=== PATIENT | female | born 2000 | race Caucasian/White ===

== ENCOUNTER → 2022-10-05 | Outpatient (CLI) | payer OTHER | END | disposition home or self-care (01) | LOC: LAB 16:47 → LAB SHORT 16:47 | PROVIDERS: Advanced Practice Midwife | DX: Z01.419 Encounter for gynecological examination (general) (routine) without abnormal findings (principal) | CPT/HCPCS: G0145 ==

== ENCOUNTER → 2022-11-16 | Outpatient (CLI) | payer BC, OTHER ==
[~2022-11-16] MED LIST: ESCI20 PO
== END ==
LOC: LAB SHORT 18:30 → LAB 18:30
DX: R35.0 Frequency of micturition (principal)
CPT/HCPCS: 87086

== ENCOUNTER → 2022-12-10 | Outpatient (CLI) | payer BC, OTHER | END | disposition home or self-care (01) | LOC: LAB SHORT 14:10 → LAB 14:10 | DX: N39.0 Urinary tract infection, site not specified (principal) | CPT/HCPCS: 84702 ==

== ENCOUNTER 2023-11-10 19:29 | Emergency (ER) | payer OTHER ==
[~2023-11-10] VITALS: Ht 162.6 cm; Wt 116.1 kg
[2023-11-10 19:33] VITALS: BP 152/96
[2023-11-10 20:00] LABS: Hematocrit 42.1 % (33.0-51.0); Hemoglobin 13.5 g/dL (11.5-16.0); Mean Corpuscular HGB 27.6 pg (26.0-34.0); Mean Corpuscular HGB Conc 32.1 g/dL (31.5-36.5); Mean Corpuscular Volume 86 fL (80-100); Mean Platelet Volume 10.8 fL (9.1-12.4); Platelet Count 296 K/mm3 (150-400); RDW Coefficient Variation 13.2 % (11.7-14.2); RDW Standard Deviation 41.1 fL (35.1-46.3)
[2023-11-10 20:19] LABS: Source, Urine Clean Catch
[2023-11-10 20:23] LABS: Bilirubin, Urine Neg (Neg); Blood, Urine Neg (Neg); Glucose Qualitative, Urine Neg (Neg); Ketones, Urine Neg (Neg); Leukocyte Esterase, Urine Neg (Neg); Nitrite, Urine Neg (Neg); Protein, Urine Neg (Neg); Urobilinogen, Urine NORM (Normal); pH, Urine 6.5 (5.0-8.0)
[2023-11-10 20:29] LABS: Appearance, Urine Clear (Clear); Color, Urine Yellow (P-Yellow)
[2023-11-10 20:36] LABS: Bun/Creatinine Ratio 13.1 (12.0-20.0); Calcium, Blood 9.1 mg/dL (8.5-10.1); Creatinine, Blood 0.92 mg/dL (0.40-1.00); Potassium, Blood 3.6 mmol/L (3.5-5.5)
[2023-11-10 20:52] LABS: BAND PERCENT MAN 2 % (0-8); BASOPHILS PERCENT MAN 1 % (0-2); EOSINOPHILS PERCENT MAN 0 % (0-6); LYMPHOCYTES % ATYPICAL MANUAL 8 % (0-0); LYMPHOCYTES ABSOLUTE MAN 4.75 K/mm3 (0.84-5.20); LYMPHOCYTES PERCENT MAN 36 % (21-46); MONOCYTES ABSOLUTE MAN 0.97 K/mm3 (0.16-1.47); MONOCYTES PERCENT MAN 9 % (4-13); NEUTROPHILS ABSOLUTE MAN 4.96 K/mm3 (1.96-9.15); SEG NEUTROPHILS PERCENT MAN 44 % (41-73); TOTAL CELLS COUNTED 100
== END 2023-11-10 21:01 | disposition home or self-care (01) ==
LOC: ER 19:29
PROVIDERS: Physician Assistant
DX: O99.891 Other specified diseases and conditions complicating pregnancy (principal); R10.12 Left upper quadrant pain; R10.32 Left lower quadrant pain; Z79.899 Other long term (current) drug therapy; Z3A.00 Weeks of gestation of pregnancy not specified
CPT/HCPCS: 76801; 76817; 80048; 81003; 84702; 85025

== ENCOUNTER 2023-12-28 19:15 | Emergency (ER) | payer OTHER ==
[~2023-12-28] VITALS: Ht 160 cm; Wt 108.9 kg
[2023-12-28 19:43] VITALS: BP 127/89
[2023-12-28 20:07] LABS: Source, Urine Clean Catch
[2023-12-28 20:10] LABS: Appearance, Urine Hazy (Clear); Blood, Urine 3+ (Neg); Color, Urine Yellow (P-Yellow); Glucose Qualitative, Urine Neg (Neg); Ketones, Urine 4+ (Neg); Leukocyte Esterase, Urine 3+ (Neg); Nitrite, Urine Neg (Neg); Protein, Urine 2+ (Neg); Specific Gravity, Urine 1.025 (1.003-1.022); Urobilinogen, Urine 1+ (Normal)
[2023-12-28 20:15] LABS: Bilirubin, Urine 1+ (Neg); White Blood Cells, Urine TNTC /hpf (0-5)
[2023-12-28 20:16] LABS: Bacteria Mod /hpf; Squamous Epithelial Cells Many /hpf (Few)
[2023-12-28] MEDS ORDERED: CefTRIAXone Sodium 1,000 MG in NS 100 ML IV ONE (21:25)
[2023-12-28] MEDS ORDERED: NS 1,000 ML IV SCH (21:25)
[2023-12-28 21:50] LABS: BASOPHILS ABSOLUTE AUTO 0.02 K/mm3 (0.00-0.23); BASOPHILS PERCENT AUTO 0 % (0-2); EOSINOPHILS ABSOLUTE AUTO 0.02 K/mm3 (0.00-0.68); EOSINOPHILS PERCENT AUTO 0 % (0-6); Hematocrit 43.6 % (33.0-51.0); Hemoglobin 14.2 g/dL (11.5-16.0); IMMATURE GRAN ABSOLUTE AUTO 0.04 K/mm3 (0.00-0.10); IMMATURE GRAN PERCENT AUTO 0 % (0-1); LYMPHOCYTES PERCENT AUTO 16 % (21-46); MONOCYTES ABSOLUTE AUTO 0.52 K/mm3 (0.16-1.47); MONOCYTES PERCENT AUTO 5 % (4-13); Mean Corpuscular HGB Conc 32.6 g/dL (31.5-36.5); Mean Corpuscular Volume 86 fL (80-100); Mean Platelet Volume 11.4 fL (9.1-12.4); NEUTROPHILS ABSOLUTE AUTO 8.32 K/mm3 (1.96-9.15); NEUTROPHILS PERCENT AUTO 78 % (41-73); Platelet Count 226 K/mm3 (150-400); RDW Coefficient Variation 13.7 % (11.7-14.2); RDW Standard Deviation 42.9 fL (35.1-46.3); Red Blood Cell Count 5.08 M/mm3 (3.80-5.20); White Blood Cell Count 10.62 K/mm3 (4.00-11.30)
[2023-12-28 22:10] LABS: Albumin, Blood 3.7 g/dL (3.4-5.0); Albumin/Globulin Ratio 0.9 (0.8-1.8); Bilirubin, Total 0.6 mg/dL (0.1-1.0); Bun/Creatinine Ratio 7.2 (12.0-20.0); Calcium, Blood 9.2 mg/dL (8.5-10.1); Creatinine, Blood 0.7 mg/dL (0.40-1.00); Globulin, Blood 4.1 g/dL (2.2-4.0); Potassium, Blood 3.6 mmol/L (3.5-5.5); Total Protein, Blood 7.8 g/dL (6.4-8.2)
[2023-12-28] MEDS ORDERED: PROM25 PO (22:19)
[2023-12-28] MEDS ORDERED: CEPH500 PO (22:19)
[2023-12-28] MEDS ORDERED: ERYT.5TO LEFTEYE (22:31)
== END 2023-12-28 22:42 | disposition home or self-care (01) ==
LOC: ER 19:15
PROVIDERS: Nurse Practitioner
DX: O99.891 Other specified diseases and conditions complicating pregnancy (principal); H10.9 Unspecified conjunctivitis; O23.41 Unspecified infection of urinary tract in pregnancy, first trimester; R82.4 Acetonuria; Z3A.12 12 weeks gestation of pregnancy
CPT/HCPCS: 80053; 81001; 85025; 87086; 96365; 99283-25; J0696; J7030

== ENCOUNTER → 2024-06-08 | Outpatient (CLI) | payer OTHER ==
[~2024-06-08] MED LIST changes: +CEPH500 PO; +ERYT.5TO LEFTEYE; +PROM25 PO
== END | disposition home or self-care (01) ==
LOC: LAB 12:03 → LAB SHORT 12:03
DX: O09.91 Supervision of high risk pregnancy, unspecified, first trimester (principal)
CPT/HCPCS: 87081; 87150

== ENCOUNTER 2024-06-22 22:03 | Inpatient (IN) | payer OTHER ==
[~2024-06-22] VITALS: Ht 165.1 cm; Wt 99.5 kg
[2024-06-22] MEDS ORDERED: Misoprostol 200 MCG Tab PR PRN (22:30)
[2024-06-22] MEDS ORDERED: Ondansetron HCl 2 MG / ML 2ML Vial IV PRN (22:30)
[2024-06-22] MEDS ORDERED: Misoprostol 200 MCG Tab BC PRN (22:30)
[2024-06-22] MEDS ORDERED: Lactated Ringer's 1,000 ML IV SCH (22:30)
[2024-06-22] MEDS ORDERED: OXYTOCIN/RINGER'S LACTATE 500 ML IV PRN (22:30)
[2024-06-22] MEDS ORDERED: Tranexamic Acid 100 ML IV SCH (22:30)
[2024-06-22] MEDS ORDERED: CeFAZolin Sodium 2,000 MG in NS 100 ML IV SCH (22:30)
[2024-06-22] MEDS ORDERED: Acetaminophen 500 MG Tab PO PRN (22:30)
[2024-06-22] MEDS ORDERED: Methylergonovine Maleate 0.2MG / ML 1ML Amp IM PRN (22:30)
[2024-06-22] MEDS ORDERED: Carboprost Tromethamine 250 MCG/ML 1ML Amp IM PRN (22:30)
[2024-06-22] MEDS ORDERED: Azithromycin 500 MG in NS 250 ML IV SCH ×2 (22:30→22:40)
[2024-06-22] MEDS ORDERED: Lactated Ringer's 1,000 ML IV ONE (22:30)
[2024-06-22] MEDS ORDERED: Oxytocin 10 Unit / ML Vial IM PRN (22:30)
[2024-06-22 22:33] LABS: BASOPHILS ABSOLUTE AUTO 0.02 K/mm3 (0.00-0.23); BASOPHILS PERCENT AUTO 0 % (0-2); EOSINOPHILS ABSOLUTE AUTO 0.01 K/mm3 (0.00-0.68); EOSINOPHILS PERCENT AUTO 0 % (0-6); Hematocrit 38.9 % (33.0-51.0); IMMATURE GRAN ABSOLUTE AUTO 0.04 K/mm3 (0.00-0.10); IMMATURE GRAN PERCENT AUTO 0 % (0-1); LYMPHOCYTES ABSOLUTE AUTO 1.34 K/mm3 (0.84-5.20); LYMPHOCYTES PERCENT AUTO 9 % (21-46); MONOCYTES ABSOLUTE AUTO 0.42 K/mm3 (0.16-1.47); MONOCYTES PERCENT AUTO 3 % (4-13); Mean Corpuscular HGB 28.8 pg (26.0-34.0); Mean Corpuscular HGB Conc 33.4 g/dL (31.5-36.5); Mean Corpuscular Volume 86 fL (80-100); NEUTROPHILS ABSOLUTE AUTO 14.02 K/mm3 (1.96-9.15); NEUTROPHILS PERCENT AUTO 88 % (41-73); Platelet Count 369 K/mm3 (150-400); RDW Coefficient Variation 13.4 % (11.7-14.2); RDW Standard Deviation 41.3 fL (35.1-46.3); Red Blood Cell Count 4.51 M/mm3 (3.80-5.20); White Blood Cell Count 15.85 K/mm3 (4.00-11.30)
[2024-06-22] MEDS ORDERED: Calcium Carbonate 500 MG Tab Chew PO PRN (22:35)
[2024-06-22] MEDS ORDERED: FentaNYL Citrate 50 MCG/ML 2 ML Injection ONE ×2 (22:47→23:24)
[2024-06-22 22:49] VITALS: BP 136/84
[2024-06-22] MEDS ORDERED: FentaNYL Citrate 50 MCG/ML 2 ML Injection IV ONE ×2 (22:50→22:55)
[2024-06-22] MEDS ORDERED: Oxytocin 10 Unit / ML Vial ONE (23:46)
[2024-06-23] VITALS (28 sets, daily range): BP systolic 71–157; BP diastolic 53–98
[2024-06-23] MEDS ORDERED: Phenylephrine HCl 10mg/ml 1 ml Vial ONE (00:01)
[2024-06-23] MEDS ORDERED: Ondansetron HCl 2 MG / ML 2ML Vial ONE (00:01)
[2024-06-23] MEDS ORDERED: Phenylephrine HCl 100 MCG/ML-NS 10MLSYR (1MG/10ML) ONE ×2 (00:01→00:32)
[2024-06-23] MEDS ORDERED: Ketorolac Tromethamine 30mg Vial ONE (00:01)
[2024-06-23] MEDS ORDERED: Dexamethasone Sod Phos 10 MG/ML 1ML VIAL ONE (00:01)
[2024-06-23] MEDS ORDERED: DiphenhydrAMINE HCl 50 MG/ML 1ML Vial ONE (00:16)
[2024-06-23] MEDS ORDERED: Oxytocin 10 Unit / ML Vial ONE (00:16)
[2024-06-23] MEDS ORDERED: Promethazine HCl 25 MG Tab PO PRN (00:55)
[2024-06-23] MEDS ORDERED: Misoprostol 200 MCG Tab PR PRN (01:00)
[2024-06-23] MEDS ORDERED: Methylergonovine Maleate 0.2MG / ML 1ML Amp IM PRN (01:00)
[2024-06-23] MEDS ORDERED: Measles/Mumps/Rubella Vaccine 0.5 ML Vial SC ONE (01:00)
[2024-06-23] MEDS ORDERED: OXYTOCIN/RINGER'S LACTATE 500 ML IV SCH ×2 (01:00)
[2024-06-23] MEDS ORDERED: Metoclopramide HCl 10 MG Tab PO PRN (01:00)
[2024-06-23] MEDS ORDERED: Ondansetron HCl 2 MG / ML 2ML Vial IV PRN (01:05)
[2024-06-23] MEDS ORDERED: OxyCODONE HCL 5 MG TAB PO PRN (01:05)
[2024-06-23] MEDS ORDERED: Lanolin Cream TOP PRN (01:05)
[2024-06-23] MEDS ORDERED: Morphine Sulfate 4 MG/1 ML Injection IV PRN (01:05)
[2024-06-23] MEDS ORDERED: Rho(D) Immune Globulin 300 MCG / SYR IM ONE (01:05)
[2024-06-23] MEDS ORDERED: DiphenhydrAMINE HCL 25 MG Cap PO PRN (01:05)
[2024-06-23] MEDS ORDERED: Simethicone 80 MG Chew PO PRN (01:05)
[2024-06-23] MEDS ORDERED: Acetaminophen 500 MG Tab PO PRN (01:10)
[2024-06-23] MEDS ORDERED: Carboprost Tromethamine 250 MCG/ML 1ML Amp IM PRN (01:10)
[2024-06-23] MEDS ORDERED: Lactated Ringer's 1,000 ML IV SCH (01:10)
[2024-06-23] MEDS ORDERED: Magnesium Hydroxide Conc 10 ML UDC PO PRN (01:10)
[2024-06-23] MEDS ORDERED: Ketorolac Tromethamine 30mg Vial IV SCH (02:00)
[2024-06-23] MEDS ORDERED: SERT100 PO (02:27)
[2024-06-23] MEDS ORDERED: Ketorolac Tromethamine 30mg Vial IV PRN (02:30)
[2024-06-23 05:55] LABS: BASOPHILS ABSOLUTE AUTO 0.01 K/mm3 (0.00-0.23); BASOPHILS PERCENT AUTO 0 % (0-2); EOSINOPHILS PERCENT AUTO 0 % (0-6); Hematocrit 34.5 % (33.0-51.0); Hemoglobin 11.5 g/dL (11.5-16.0); IMMATURE GRAN ABSOLUTE AUTO 0.08 K/mm3 (0.00-0.10); IMMATURE GRAN PERCENT AUTO 0 % (0-1); LYMPHOCYTES ABSOLUTE AUTO 0.98 K/mm3 (0.84-5.20); LYMPHOCYTES PERCENT AUTO 5 % (21-46); MONOCYTES ABSOLUTE AUTO 0.69 K/mm3 (0.16-1.47); MONOCYTES PERCENT AUTO 4 % (4-13); Mean Corpuscular HGB 29.1 pg (26.0-34.0); Mean Corpuscular HGB Conc 33.3 g/dL (31.5-36.5); Mean Corpuscular Volume 87 fL (80-100); Mean Platelet Volume 11.3 fL (9.1-12.4); NEUTROPHILS ABSOLUTE AUTO 16.74 K/mm3 (1.96-9.15); NEUTROPHILS PERCENT AUTO 91 % (41-73); Platelet Count 336 K/mm3 (150-400); RDW Coefficient Variation 13.3 % (11.7-14.2); RDW Standard Deviation 42.4 fL (35.1-46.3); Red Blood Cell Count 3.95 M/mm3 (3.80-5.20)
[2024-06-23] MEDS ORDERED: Ibuprofen 400 MG Tab PO PRN (06:45)
[2024-06-23] MEDS ORDERED: Ibuprofen 400 MG Tab PO SCH (08:00)
[2024-06-23] MEDS ORDERED: Docusate Sodium 100 MG Cap PO SCH (09:00)
[2024-06-23] MEDS ORDERED: Prenatal Vit/FE Fumarate/FA 1 Tab PO SCH (09:00)
--- NOTE | 2024-06-23 18:40 | NUR ---
PT SLEEPING IN BED, PT HAS HAD WELL CONTROLLED PAIN T/O THE DAY, PT HAS ONLY BOTTLE FED FORMULA T/O THIS SHIFT
[2024-06-24 03:09] VITALS: BP 128/79
[2024-06-24 08:14] VITALS: BP 128/80
[2024-06-24] MEDS ORDERED: OXYC5 (09:38)
[2024-06-24] MEDS ORDERED: IBUP800 PO (09:38)
[2024-06-24] MEDS ORDERED: ACET500 PO (09:39)
[2024-06-24 11:47] VITALS: BP 138/80
--- NOTE | 2024-06-24 13:20 | NUR ---
Printed instructions reviewed by pt earlier in shift, denies questions, declines additional teaching. Verbalized understanding of follow up and when to call MD/CNM. No acute changes t/o shift. Pt d/c'd home ambulatory to care of family.
== END 2024-06-24 13:20 | disposition home or self-care (01) | DRG 785 ==
LOC: OBS 22:03 → BC 22:07 → OBS 22:28 → BC 22:31
PROVIDERS: ADMIT Obstetrics & Gynecology
PROC: 0UT70ZZ Resection of Bilateral Fallopian Tubes, Open Approach (ICD-10-PCS; 2024-06-22)
PROC: 10D00Z1 Extraction of Products of Conception, Low, Open Approach (ICD-10-PCS; principal; 2024-06-22 23:00)
DX: O34.211 Maternal care for low transverse scar from previous cesarean delivery (principal); O42.02 Full-term premature rupture of membranes, onset of labor within 24 hours of rupture; O32.1XX0 Maternal care for breech presentation, not applicable or unspecified; O99.343 Other mental disorders complicating pregnancy, third trimester; F41.8 Other specified anxiety disorders; O76 Abnormality in fetal heart rate and rhythm complicating labor and delivery; Z3A.37 37 weeks gestation of pregnancy; Z37.0 Single live birth; J45.909 Unspecified asthma, uncomplicated; O99.52 Diseases of the respiratory system complicating childbirth; O99.214 Obesity complicating childbirth; Z79.899 Other long term (current) drug therapy; Z98.890 Other specified postprocedural states; Z30.2 Encounter for sterilization
CPT/HCPCS: 36415; 59025; 85025; 86850; 86900; 86901; 86923; 88302; A9270; J0456; J0690; J1100; J1200; J1885; J2371; J2405; J2590; J3010; J7050; J7120

== ENCOUNTER → 2024-11-02 | Outpatient (CLI) | payer OTHER ==
[~2024-11-02] MED LIST changes: +ACET500 PO; +IBUP800 PO; +OXYC5; +SERT100 PO
== END | disposition home or self-care (01) ==
LOC: LAB SHORT 14:30 → LAB 14:30
DX: N39.0 Urinary tract infection, site not specified (principal)
CPT/HCPCS: 87077; 87086; 87186